=== PATIENT | male | born 1970 | race Two or more races ===

== ENCOUNTER → 2018-09-27 | Outpatient (CLI) | payer OTHER ==
[~2018-09-27] MED LIST: AVALIDE 150-12.1 TA1 PO; BACLOFEN20 MG PO; COZAAR50 MG; KALETRA PO; METFORMIN HCL500 MG; NEURONTIN800 MG PO; TRUVADA TABLET1 TAB PO; ULTRAM50 MG PO
== END | disposition home or self-care (01) ==
LOC: SONOGRAMA 07:42
DX: E04.1 Nontoxic single thyroid nodule (principal)

== ENCOUNTER 2019-07-21 10:50 | Emergency (ER) | payer OTHER ==
[~2019-07-21] VITALS: Ht 167.6 cm; Wt 122.5 kg
[2019-07-21] MEDS ORDERED: BIKTARVY 50-201 EACH PO (11:03)
[2019-07-21] MEDS ORDERED: CLARITIN10 MG PO (11:04)
[2019-07-21] MEDS ORDERED: BACTRIM DS TAB1 EACH PO (15:05)
== END 2019-07-21 15:37 | disposition home or self-care (01) ==
LOC: ER 10:50
DX: B20 Human immunodeficiency virus [HIV] disease (principal); M25.511 Pain in right shoulder; R60.0 Localized edema; F41.8 Other specified anxiety disorders

== ENCOUNTER 2020-01-25 08:06 | Outpatient (CLI) | payer OTHER ==
[~2020-01-25 08:06] MED LIST changes: +BACTRIM DS TAB1 EACH PO; +BIKTARVY 50-201 EACH PO; +CLARITIN10 MG PO
== END 2020-01-25 13:11 | disposition home or self-care (01) ==
LOC: NUCLEAR 08:06
PROVIDERS: ATTEND Orthopaedic Surgery
DX: M86.611 Other chronic osteomyelitis, right shoulder (principal)
CPT/HCPCS: 78315; A9503

== ENCOUNTER → 2024-04-05 | Outpatient (CLI) | payer OTHER | END | disposition home or self-care (01) | LOC: RAD 09:30 | PROVIDERS: ATTEND Physical Medicine & Rehabilitation | DX: S82.002A Unspecified fracture of left patella, initial encounter for closed fracture (principal); S72.402A Unspecified fracture of lower end of left femur, initial encounter for closed fracture ==

== ENCOUNTER 2024-04-27 09:39 | Outpatient (CLI) | payer OTHER | END 2024-04-27 09:42 | disposition home or self-care (01) | LOC: RAD 09:39 | DX: S72.302D Unspecified fracture of shaft of left femur, subsequent encounter for closed fracture with routine healing (principal) ==

== ENCOUNTER 2024-05-26 14:18 | Outpatient (CLI) | payer OTHER | END 2024-05-26 14:22 | disposition home or self-care (01) | LOC: RAD 14:18 | PROVIDERS: ATTEND General Practice | DX: R05.9 Cough, unspecified (principal); Z13.820 Encounter for screening for osteoporosis; M25.561 Pain in right knee; S72.302D Unspecified fracture of shaft of left femur, subsequent encounter for closed fracture with routine healing ==

== ENCOUNTER 2024-06-19 10:15 | Outpatient (CLI) | payer OTHER | END 2024-06-19 10:16 | disposition home or self-care (01) | LOC: NUCLEAR 10:15 | PROVIDERS: ATTEND General Practice | DX: Z13.820 Encounter for screening for osteoporosis (principal); M81.0 Age-related osteoporosis without current pathological fracture ==

== ENCOUNTER 2024-09-13 11:53 | Outpatient (CLI) | payer OTHER | END 2024-09-13 11:55 | disposition home or self-care (01) | LOC: RAD 11:53 | DX: M25.562 Pain in left knee (principal); M79.652 Pain in left thigh ==

== ENCOUNTER 2024-10-06 12:43 | Outpatient (CLI) | payer OTHER | END 2024-10-06 12:47 | disposition home or self-care (01) | LOC: TOM 12:43 | DX: K57.11 Diverticulosis of small intestine without perforation or abscess with bleeding (principal); N31.9 Neuromuscular dysfunction of bladder, unspecified ==

== ENCOUNTER 2024-10-16 08:49 | Outpatient (CLI) | payer OTHER | END 2024-10-16 08:50 | disposition home or self-care (01) | LOC: NUCLEAR 08:49 | DX: I87.2 Venous insufficiency (chronic) (peripheral) (principal); I87.8 Other specified disorders of veins ==

== ENCOUNTER 2024-10-17 07:34 | Outpatient (CLI) | payer OTHER | END 2024-10-17 07:36 | disposition home or self-care (01) | LOC: NUCLEAR 07:34 | DX: I87.2 Venous insufficiency (chronic) (peripheral) (principal); I87.8 Other specified disorders of veins ==